=== PATIENT | female | born 1995 | race Caucasian/White ===

== ENCOUNTER 2017-04-07 11:32 | Emergency (ER) | payer BC, OTHER ==
[~2017-04-07] VITALS: Ht 167.6 cm; Wt 66.8 kg
[~2017-04-07 11:32] MED LIST: ABILIFY15 MG PO; AFRIN,GENASAL D15 ML BOTH NARES; ALL DAY ALLERGY10 MG PO; BUSPAR10 MG PO; BUSPAR15 MG PO; BUSPIRONE HCL15 MG PO; BUSPIRONE HCL30 MG PO; CARAFATE100 MG/ML PO; FLONASE16 G1 BOTH NARES; FLUOXETINE HCL20 MG PO; INDERAL60 MG PO; KEFLEX500 MG PO; LAMICTAL150 MG PO; LAMICTAL25 MG PO; LITHIUM CARBON300 M1 PO; LITHIUM CARBON300 MG PO; LITHIUM CARBON600 MG PO; LITHOBID300 MG PO; MOTRIN600 MG PO; PERCOCET 5/31 TABLET PO; PRAZOSIN HCL1 MG PO; PROZAC20 M1 PO; PROZAC20 MG PO; PROZAC40 MG PO; QUETIAPINE FUMA25 MG PO; RANITIDINE HCL150 M1 PO; RISPERDAL0.5 MG PO; RITALIN10 MG PO; SEROQUEL50 MG PO; SINGULAIR10 MG PO; VENTOLIN HFA18 GM IH; VYVANSE30 MG PO; ZITHROMAX Z-PA250 MG PO; ZYRTEC10 M3 PO
[2017-04-07] MEDS ORDERED: PROAIR RESPICL90 MCG IH (14:14)
[2017-04-07 14:29] VITALS: BP 102/54
== END 2017-04-07 14:33 | disposition home or self-care (01) ==
LOC: EME 11:32
DX: F31.9 Bipolar disorder, unspecified (principal); J45.909 Unspecified asthma, uncomplicated; F17.200 Nicotine dependence, unspecified, uncomplicated
CPT/HCPCS: 90837; 99281; 99284

== ENCOUNTER 2017-10-01 12:31 | Inpatient (IN) | payer OTHER ==
[~2017-10-01] VITALS: Ht 167.6 cm; Wt 68.0 kg
[~2017-10-01 12:31] MED LIST changes: +PROAIR RESPICL90 MCG IH
[2017-10-01 14:32] LABS: MCH 33.7 PG (29.0-34.0); MCHC 34.4 G/DL (30.0-36.0); MEAN PLAT.VOLUME 9.7 uM^3 (9.5-12.4); PLATELET COUNT 380 K/uL (156-360); RBC DIS.WIDTH-CV 11.8 % (11.8-14.6); RED BLOOD COUNT 3.98 M/uL (3.80-5.20); WHITE BLOOD COUNT 7.7 K/uL (4.1-10.2)
[2017-10-01 14:41] LABS: CHLORIDE 107 mEq/L (99-109); POTASSIUM 4.3 mEq/L (3.7-5.4); SODIUM 140 mEq/L (136-147)
[2017-10-01 14:44] LABS: GLUCOSE 87 mg/dL (70-99)
[2017-10-01 14:45] LABS: ANION GAP 6 MEQ/L (2-14); TOTAL BILIRUBIN 0.3 mg/dL (0.0-1.0)
[2017-10-01 14:47] LABS: ALKALINE PHOSPHATASE 75 IU/L (3-129); GFR ESTIMATE (CALCULATED) 49 mL/min/; SERUM ETHYL ALCOHOL < 10 mg/dL
[2017-10-01 14:48] LABS: UREA NITROGEN (BUN) 15 mg/dL (9-23)
[2017-10-01 14:56] LABS: QUANTITATIVE HCG < 4.0 MIU/ML
[2017-10-01 16:13] LABS: AMPHETAMINE NEGATIVE (500 ng/mL); BARBITURATES NEGATIVE (200 ng/mL); BENZODIAZEPINES NEGATIVE (150 ng/mL); COCAINE NEGATIVE (150 ng/mL); METHADONE NEGATIVE (200 ng/mL); METHAMPHETAMINE NEGATIVE (500 ng/mL); OPIATES (MORPHINE) NEGATIVE (100 ng/mL); OXYCODONE NEGATIVE (100 ng/mL); PHENCYCLIDINE NEGATIVE (25 ng/mL); PROPOXYPHENE NEGATIVE (300 ng/mL); THC CANNABINOIDS PRESUMPTIVE POSITIVE (50 ng/mL); TRICYCLIC ANTIDEPRESSANTS NEGATIVE (300 ng/mL)
[2017-10-01 16:14] LABS: ADD MEDTOX COMMENT Y; INTERNAL CONTROLS VALID? YES
[2017-10-01 22:13] VITALS: BP 114/66
[2017-10-01 22:15] VITALS: BP 114/66
[2017-10-01] MEDS ORDERED: SEROQUEL100 MG PO (22:56)
[2017-10-01] MEDS ORDERED: BUSPAR10 MG PO (22:57)
[2017-10-01] MEDS ORDERED: LITHIUM CARBON600 MG PO (23:00)
[2017-10-02 07:04] VITALS: BP 105/57
[2017-10-02 15:38] VITALS: BP 108/56
[2017-10-03 07:51] VITALS: BP 107/63
[2017-10-03 15:29] VITALS: BP 118/58
[2017-10-04 07:53] VITALS: BP 105/55
[2017-10-04] MEDS ORDERED: LITHIUM CARBON600 MG PO (09:34)
[2017-10-04] MEDS ORDERED: SEROQUEL100 MG PO (09:34)
[2017-10-04] MEDS ORDERED: BUSPAR10 MG PO (09:34)
== END 2017-10-04 09:58 | disposition home or self-care (01) | DRG 885 ==
LOC: EME 12:31 → 1WEST 16:57 → EDOF 16:57 → ENRESERV 21:57 → 1WEST 22:04
PROVIDERS: Emergency Medicine
DX: F31.9 Bipolar disorder, unspecified (principal); F10.20 Alcohol dependence, uncomplicated; F60.9 Personality disorder, unspecified; R45.851 Suicidal ideations; R45.850 Homicidal ideations; J45.909 Unspecified asthma, uncomplicated; F19.21 Other psychoactive substance dependence, in remission; F12.10 Cannabis abuse, uncomplicated; G47.00 Insomnia, unspecified; F17.200 Nicotine dependence, unspecified, uncomplicated; Z91.5 Personal history of self-harm; Z59.0 Homelessness; Z81.8 Family history of other mental and behavioral disorders; F90.9 Attention-deficit hyperactivity disorder, unspecified type; F41.9 Anxiety disorder, unspecified
CPT/HCPCS: 80053; 80178; 84702; 84999; 85027; 90839; 97150 GO; 97165 GO; 99281; 99285; G0480

== ENCOUNTER 2017-11-09 09:34 | Inpatient (IN) | payer BC, OTHER ==
[~2017-11-09] VITALS: Ht 167.6 cm; Wt 69.3 kg
[~2017-11-09 09:34] MED LIST changes: +SEROQUEL100 MG PO
[2017-11-09 10:07] LABS: HEMATOCRIT 42.5 % (36.0-46.0); HEMOGLOBIN 14.5 G/DL (11.9-15.5); MCH 33.6 PG (29.0-34.0); MCHC 34.1 G/DL (30.0-36.0); MCV 98.4 FL (83-99); PLATELET COUNT 269 K/uL (156-360); RBC DIS.WIDTH-CV 12.6 % (11.8-14.6); RBC DIS.WIDTH-SD 45.2 % (39-53); RED BLOOD COUNT 4.32 M/uL (3.80-5.20); WHITE BLOOD COUNT 7.3 K/uL (4.1-10.2)
[2017-11-09 10:14] LABS: AMPHETAMINE NEGATIVE (500 ng/mL); BARBITURATES NEGATIVE (200 ng/mL); BENZODIAZEPINES NEGATIVE (150 ng/mL); BUPRENORPHINE NEGATIVE (10 ng/mL); COCAINE NEGATIVE (150 ng/mL); METHADONE NEGATIVE (200 ng/mL); METHAMPHETAMINE NEGATIVE (500 ng/mL); OPIATES (MORPHINE) NEGATIVE (100 ng/mL); OXYCODONE NEGATIVE (100 ng/mL); PHENCYCLIDINE NEGATIVE (25 ng/mL); PROPOXYPHENE NEGATIVE (300 ng/mL); THC CANNABINOIDS PRESUMPTIVE POSITIVE (50 ng/mL); TRICYCLIC ANTIDEPRESSANTS NEGATIVE (300 ng/mL)
[2017-11-09 10:16] LABS: CHLORIDE 108 mEq/L (99-109); POTASSIUM 3.7 mEq/L (3.7-5.4); SODIUM 138 mEq/L (136-147)
[2017-11-09 10:17] LABS: GLUCOSE 98 mg/dL (70-99)
[2017-11-09 10:21] LABS: CREATININE 0.9 mg/dL (0.6-1.3); GFR ESTIMATE (CALCULATED) > 59 mL/min/; SERUM ETHYL ALCOHOL < 10 mg/dL
[2017-11-09 10:22] LABS: UREA NITROGEN (BUN) 11 mg/dL (9-23)
[2017-11-09 10:31] LABS: QUANTITATIVE HCG < 4.0 MIU/ML
[2017-11-09] MEDS ORDERED: BUSPAR30 MG PO (11:48)
[2017-11-09] MEDS ORDERED: LITHIUM CARBON300 MG PO (11:49)
[2017-11-09] MEDS ORDERED: RISPERDAL0.25 MG PO (11:50)
[2017-11-09 12:01] VITALS: BP 122/74
[2017-11-09] MEDS ORDERED: PROAIR HFA8.5 GM IH (12:42)
[2017-11-09 12:44] VITALS: BP 122/74
[2017-11-09 15:33] VITALS: BP 104/54
[2017-11-10 08:23] VITALS: BP 119/58
[2017-11-10 16:58] VITALS: BP 121/73
[2017-11-11 07:40] VITALS: BP 131/75
[2017-11-11 15:44] VITALS: BP 132/77
[2017-11-12 07:32] VITALS: BP 111/64
[2017-11-12 15:40] VITALS: BP 121/63
[2017-11-13 07:34] VITALS: BP 104/66
[2017-11-13 12:04] LABS: HIV-1/2 AB/AG COMBO Nonreactive
[2017-11-13 15:59] VITALS: BP 122/57
[2017-11-14 07:32] VITALS: BP 107/75
[2017-11-14] MEDS ORDERED: RISPERIDONE0.5 MG PO (08:58)
[2017-11-14 09:20] LABS: TREPONEMA ANTIBODY NEGATIVE (NEGATIVE)
== END 2017-11-14 09:22 | disposition home or self-care (01) | DRG 885 ==
LOC: EME 09:34 → 1WEST 11:25 → EDOF 11:25 → ENRESERV 11:48 → 1WEST 11:56
PROVIDERS: Psychiatry & Neurology Psychiatry
DX: F31.62 Bipolar disorder, current episode mixed, moderate (principal); R45.851 Suicidal ideations; F10.20 Alcohol dependence, uncomplicated; F60.3 Borderline personality disorder; F41.9 Anxiety disorder, unspecified; F90.9 Attention-deficit hyperactivity disorder, unspecified type; J45.909 Unspecified asthma, uncomplicated; F12.90 Cannabis use, unspecified, uncomplicated; F17.200 Nicotine dependence, unspecified, uncomplicated
CPT/HCPCS: 80048; 84702; 84999; 85027; 86780; 87389; 90837; 94640; 97150 GO; 97165 GO; 99281; 99285; G0480

== ENCOUNTER 2018-01-08 08:30 | Emergency (ER) | payer BC, OTHER ==
[~2018-01-08] VITALS: Ht 167.6 cm; Wt 69.3 kg
[~2018-01-08 08:30] MED LIST changes: +BUSPAR30 MG PO; +PROAIR HFA8.5 GM IH; +RISPERDAL0.25 MG PO; +RISPERIDONE0.5 MG PO
[2018-01-08 09:07] LABS: HEMATOCRIT 44.3 % (36.0-46.0); HEMOGLOBIN 15.4 G/DL (11.9-15.5); MCHC 34.8 G/DL (30.0-36.0); MCV 97.8 FL (83-99); PLATELET COUNT 320 K/uL (156-360); RBC DIS.WIDTH-CV 12.7 % (11.8-14.6); RED BLOOD COUNT 4.53 M/uL (3.80-5.20)
[2018-01-08 09:40] LABS: CHLORIDE 109 MEQ/L (99-109); CREATININE 0.8 MG/DL (0.6-1.3); GFR ESTIMATE (CALCULATED) > 59 mL/min/; GLUCOSE 92 mg/dL (70-99); POTASSIUM 4.5 MEQ/L (3.7-5.4); SERUM ETHYL ALCOHOL 95 mg/dL; SODIUM 142 MEQ/L (136-147); UREA NITROGEN (BUN) 8 mg/dL (9-23)
[2018-01-08 10:13] LABS: AMPHETAMINE NEGATIVE (500 ng/mL); BARBITURATES NEGATIVE (200 ng/mL); BENZODIAZEPINES NEGATIVE (150 ng/mL); BUPRENORPHINE NEGATIVE (10 ng/mL); COCAINE NEGATIVE (150 ng/mL); METHADONE NEGATIVE (200 ng/mL); METHAMPHETAMINE NEGATIVE (500 ng/mL); OPIATES (MORPHINE) NEGATIVE (100 ng/mL); OXYCODONE NEGATIVE (100 ng/mL); PHENCYCLIDINE NEGATIVE (25 ng/mL); PROPOXYPHENE NEGATIVE (300 ng/mL); THC CANNABINOIDS PRESUMPTIVE POSITIVE (50 ng/mL); TRICYCLIC ANTIDEPRESSANTS NEGATIVE (300 ng/mL)
[2018-01-08 11:35] VITALS: BP 117/72
== END 2018-01-08 11:43 | disposition home or self-care (01) ==
LOC: EME 08:30
PROVIDERS: Nurse Practitioner Family
DX: F31.31 Bipolar disorder, current episode depressed, mild (principal); F32.9 Major depressive disorder, single episode, unspecified; S60.221A Contusion of right hand, initial encounter; W22.8XXA Striking against or struck by other objects, initial encounter; Z04.6 Encounter for general psychiatric examination, requested by authority; Y90.4 Blood alcohol level of 80-99 mg/100 ml; J45.909 Unspecified asthma, uncomplicated; F41.9 Anxiety disorder, unspecified; F90.9 Attention-deficit hyperactivity disorder, unspecified type; F17.200 Nicotine dependence, unspecified, uncomplicated; Z88.5 Allergy status to narcotic agent; Z88.8 Allergy status to other drugs, medicaments and biological substances
CPT/HCPCS: 73130; 80048; 84999; 85027; 90837; 99281; 99285; G0480